=== PATIENT | female | born 1995 | race Caucasian/White ===

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

== ENCOUNTER 2017-06-07 10:17 | Outpatient (CLI) | payer OTHER ==
[2017-06-07 11:17] LABS: Amorphous Sediment,Urine Few /hpf; Appearance,Urine Clear (Clear); Bacteria,Urine Occasional /hpf; Bilirubin,Urine Negative (Negative); Glucose,Urine (UA) Trace (Negative); Ketones,Urine Negative (Negative); Leukocyte Esterase,Urine Large (Negative); Mucus,Urine Rare /hpf; Nitrite,Urine Negative (Negative); PH, Urine 7.5 (5.0-8.0); Particle Count 8488; Protein,Urine Trace (Negative); RBC,Urine 3 /hpf (0-5); Specific Gravity,Urine 1.006 (1.001-1.035); Squamous Epithelial Cell,Urine 1 /hpf (0-4); UA Billing (MACRO vs. MICRO) MICRO; Urobilinogen,Urine <2.0 mg/dL (<2.0); WBC,Urine 43 /hpf (0-5)
[2017-06-07 12:24] VITALS: BP 133/76; PULSE 85; RESP 14; TEMP 98.1
--- NOTE | 2017-08-14 09:29 | P.MSEPDOC ---
Presenting Problems - Arrival Data Date of Arrival on Unit: 06/07/17 Time of Arrival on Unit: 10:15 Mode of Transport: Ambulatory - Complaint OB-Reason for Admission/Chief Complaint: Pain Comment: vaginal pressure Medical History - Information : 2 Para: 1 Term: 1 : 0 Abortions: Spontaneous or Elective: 0 Number of Living Children: 1 - Gestational Age Gestational Age by JUSTA (wks/days): 32 Weeks and 2 Days - History Complications: No Care Review of Systems - Review of Systems Constitutional: No problems Breast: No problems ENT: No problems Cardiovascular: No problems Respiratory: No problems Gastrointestinal: No problems Genitourinary: No problems Musculoskeletal: No problems Neurological: No problems Skin: No problems Vital Signs - Temperature Temperature: 98.1 F Temperature Source: Oral - Pulse Right Brachial Pulse Rate: 85 Pulse Assessment Method: Automatic Cuff - Respirations Respiratory Rate: 14 Oxygen Delivery Method: Room Air - Blood Pressure Right Arm Blood Pressure: 133/76 Blood Pressure Mean: 95 Blood Pressure Source: Automatic Cuff Medical Screen Scoring (Pre) - Cervical Exam Dilation: 1-3 cm = 1 Membranes: Intact - Uterine Contractions Frequency: N/A Duration: N/A Intensity: N/A - Maternal Vital Signs Maternal Temperature: N/A Maternal Blood Pressure: N/A Signs of Preeclampsia: N/A Maternal Respirations: N/A - Maternal Trauma Maternal Trauma: N/A - Assessment Baseline FHR: 150 Heart Rate - NICHD Category: Category I (Normal) = 0 NST: Reactive Position: N/A - Total Score Total Score (Pre): 1 - Level of Risk Level of Risk: Low (0-5) Physician Notification (Pre) - Physician Notified Physician Notified Date: 06/07/17 Physician Notified Time: 11:13 Physician/Practitioner Notifed:: alta Spoke With: alta New Order Received: Yes - Notification Comment Comment: send ffn, ua, call with results Medical Screen Scoring (Post) - Cervical Exam Dilation: 1-3 cm = 1 - Uterine Contractions Frequency: N/A Duration: N/A - Maternal Vital Signs Maternal Temperature: N/A Maternal Blood Pressure: N/A Signs of Preeclampsia: N/A Maternal Respirations: N/A - Maternal Trauma Maternal Trauma: N/A - Assessment Heart Rate: 150 Heart Rate - NICHD Category: Category I (Normal) = 0 NST: Reactive Position: N/A Station: N/A - Total Score Total Score (Post): 1 - Post Treatment Level of Risk Post Treatment Level of Risk: Low (0-5) Physician Notification (Post) - Physician Notified Physician Notified Date: 06/07/17 Physician Notified Time: 11:52 Physician/Practitioner Notified:: alta Spoke With: alta New Order Received: Yes - Notification Comment Comment: script called into pt pharmacy of choice, culture from ua being drawn, pt to keep 2 oclock appointment tomorrow at [facility] Disposition - Disposition OB Disposition: Physician follow up in office, Discharge to home Discharge Date: 06/07/17 Discharge Time: 12:05 I agree with the RN Medical Screening Exam: Yes Risk & Benefit of care provided described in d/c instruction: Yes Diagnosis: FALSE LABOR BEFORE 37 COMPLETED WEEKS OF GEST, THIRD TRI
== END 2017-06-07 12:05 | disposition home or self-care (01) ==
LOC: FBPOP 10:17
PROVIDERS: ATTEND Obstetrics & Gynecology Obstetrics
DX: O47.03 False labor before 37 completed weeks of gestation, third trimester (principal); Z3A.32 32 weeks gestation of pregnancy
CPT/HCPCS: 59025; 81001; 82731; 87077; 87086; 87186; 99213

== ENCOUNTER 2017-07-24 05:41 | Inpatient (IN) | payer OTHER ==
[2017-07-24] MEDS ORDERED: OXYTOCIN 10 UNIT/ML 1 ML VIAL IM PRN (05:55)
[2017-07-24] MEDS ORDERED: METHYLERGONOVINE 0.2 MG/ML 1 ML AMP IM PRN (05:55)
[2017-07-24] MEDS ORDERED: CARBOPROST TROMETHAMINE 250 MCG/ML 1 ML AMP IM PRN (05:55)
[2017-07-24] MEDS ORDERED: LIDOCAINE 1% (PF) 10 MG/ML (30 ML SDV) SQ PRN (05:55)
[2017-07-24] MEDS ORDERED: TERBUTALINE 1 MG/ML VIAL SQ PRN (05:55)
[2017-07-24] MEDS ORDERED: PENICILLIN G POTASSIUM 5,000,000 UNIT in DEXTROSE 5% IN WATER 100 ML IV STA ×2 (05:55)
[2017-07-24 06:04] VITALS: BMI 33.2
[2017-07-24 06:12] LABS: Basophils % (A) 0 %; CH 25.9; CHCM 32.8; Eosinophils # (A) 0.2 k/uL (0-0.7); Eosinophils % (A) 2 %; HCT 36.1 % (34.0-46.0); HDW 3.29; HGB 11.9 gm/dL (11.4-16.0); Hypochromasia Slight; Luc # (Auto) 0.14; Luc % (Auto) 1; Lymphocytes # (A) 2.6 k/uL (1.0-4.8); Lymphocytes % (A) 26 %; MCH 26.1 pg (25.0-35.0); MCV 79.3 fL (80.0-100.0); Mean Platelet Volume 7.4; Monocytes # (A) 0.4 k/uL (0-1.0); Monocytes % (A) 4 %; Neutrophils # (A) 6.6 k/uL (1.3-7.7); Neutrophils % (A) 67 %; RBC 4.55 m/uL (3.80-5.40); RDW 15.6 % (11.5-15.5); WBC 9.9 k/uL (4.0-11.0); WBC (Perox) 10.58
[2017-07-24] MEDS: LACTATED RINGERS 1,000 ML IV SCH ×2 (06:35→11:40)
[2017-07-24] MEDS: OXYTOCIN 20 UNITS/1000 ML NS 1,000 ML IV SCH (06:36)
--- NOTE | 2017-07-24 10:29 | P.HPOB ---
History of Present Illness H&P Date: 07/24/17 Chief Complaint: Intrauterine at 39-0/7 weeks. Betty is a very pleasant 22-year-old 2 para 1001 that presents for elective induction of labor. She is without complaints this morning. She notes good movement and only occasional contractions and denies loss of fluid. On blood work her blood type is O+ she is rubella nonimmune, hepatitis B surface antigen negative, GBS positive, HIV negative, RPR nonreactive. Review of Systems Constitutional: Reports fatigue Past Medical History Past Medical History: No Reported History History of Any Multi-Drug Resistant Organisms: None Reported Past Surgical History: No Surgical Hx Reported Additional Past Surgical History / Comment(s): myrinotomy at age 12 Past Anesthesia/Blood Transfusion Reactions: No Reported Reaction Past Psychological History: Anxiety, Depression Smoking Status: Never smoker Past Alcohol Use History: None Reported Past Drug Use History: None Reported - Past Family History Mother Family Medical History: Hypertension Medications and Allergies Home Medications Medication Instructions Recorded Confirmed Type Pedi Multivit No.25/Folic Acid 1 tab PO DAILY 06/07/17 07/24/17 History [Flintstones Multivit Chew Tab] Allergies Allergy/AdvReac Type Severity Reaction Status Date / Time No Known Allergies Allergy Verified 07/24/17 05:54 Exam Osteopathic Statement: *. No significant issues noted on an osteopathic structural exam other than those noted in the History and Physical/Consult. - Vital Signs Vital signs: Vital Signs Temp Pulse Resp BP 07/24/17 05:58 97.7 F 88 16 136/93 Intake and Output 07/23/17 07/24/17 07/24/17 22:59 06:59 14:59 Other: # Voids 1 Weight 79.832 kg - OBG Physical Exam Abdomen: Gravid and appropriate for gestational age Abdomen: bowel sounds normal Vulva: both: normal Vagina: normal moisture Cervix: 4 cm/80%/-2 Uterus: enlarged Anus/Rectum: normal perianal skin Results Result Diagrams: 07/24/17 05:57 Abnormal Lab Results - Last 24 Hours (Table) 07/24/17 Range/Units 05:57 MCV 79.3 L (80.0-100.0) fL RDW 15.6 H (11.5-15.5) % Assessment and Plan (1) Term Narrative/Plan: Will admit to labor and delivery for elective induction of labor. Pitocin augmentation per protocol, amniotomy when appropriate. Anticipate spontaneous vaginal delivery later this afternoon. We will repeat MMR after delivery given she is rubella nonimmune Status: Acute
[2017-07-24] MEDS: PENICILLIN G POTASSIUM 2,500,000 UNIT in DEXTROSE 5% IN WATER 100 ML IV SCH ×2 (10:36)
[2017-07-24] MEDS ORDERED: SODIUM CHLORIDE 0.9% 100 ML BAG ONE (11:08)
[2017-07-24] MEDS ORDERED: fentaNYL (PF) 50 MCG/ML 5 ML AMP ONE (11:08)
[2017-07-24] MEDS ORDERED: BUPIVACAINE (PF) 0.25% 30 ML VIAL ONE (11:08)
[2017-07-24] MEDS ORDERED: BUPIVACAINE (PF) 0.25% 25 ML, fentaNYL (PF) 200 MCG in SODIUM CHLORIDE 0.9% 71 ML EPIDURAL ONE (11:20)
--- NOTE | 2017-07-24 12:26 | P.PROBDLV ---
Vaginal Delivery Note - . Vaginal Delivery Note: Alpa is a very pleasant 22-year-old at 39-0/7 weeks that presents for elective induction of labor. Pitocin was started this morning with a ventral arm artificial rupture of membranes. She progressed through labor getting an epidural and was complete soon after. heart tones were noted to be in the 90s good variability remained with poor maternal effort with pushing therefore a vacuum assist vaginal delivery was necessary. 1 pull with push only and baby delivered without difficulty. Preoperative diagnosis: IUP at 39-0/7 weeks, elective induction of labor, group beta strep positive, rubella nonimmune. Postoperative diagnosis: same Procedure vacuum-assisted vaginal delivery, amniotomy, Pitocin induction of labor Surgeon Omayra De Leon D.O. Anesthesia epidural Estimated blood loss 400 mL Findings: female in occiput posterior presentation, time of 1141, Apgars of 9 and 9 at one and 5 minutes respectively. Placenta delivered spontaneously with three-vessel cord. Complications none Specimen placenta Mother and tolerated delivery well and are in stable condition
[2017-07-24] MEDS ORDERED: MEASLES-MUMPS-RUBELLA VACC/PF 12,500 UNIT/0.5 ML VIAL SQ ONE (12:35)
[2017-07-24] MEDS ORDERED: HYDROCORTISONE 2.5% RECTAL CREAM 30 GM TUBE RECTAL PRN (12:35)
[2017-07-24] MEDS ORDERED: ZOLPIDEM 5 MG TAB PO PRN (12:35)
[2017-07-24] MEDS ORDERED: LANOLIN CREAM 5 GM TUBE TOPICAL PRN (12:35)
[2017-07-24] MEDS ORDERED: diphenhydrAMINE 50 MG/ML 1 ML VIAL IVP PRN ×2 (12:35)
[2017-07-24] MEDS ORDERED: diphenhydrAMINE 50 MG CAP PO PRN (12:35)
[2017-07-24] MEDS ORDERED: diphenhydrAMINE 25 MG CAP PO PRN (12:35)
[2017-07-24] MEDS ORDERED: BENZOCAINE/MENTHOL SPRAY 1 GM/SPRAY AEROSOL TOPICAL PRN (12:35)
[2017-07-24] MEDS ORDERED: ACETAMINOPHEN TAB 325 MG TAB PO PRN (12:35)
[2017-07-24] MEDS ORDERED: SIMETHICONE 80 MG CHEWABLE PO PRN (12:35)
[2017-07-24] MEDS ORDERED: Acetaminophen-Codeine 300-30mg TAB PO PRN ×2 (12:35)
[2017-07-24] MEDS ORDERED: WITCH HAZEL 1 EACH MED..PAD TOPICAL PRN (12:35)
[2017-07-24 16:33] VITALS: RESP 18
[2017-07-24] MEDS: SENNOSIDES-DOCUSATE SODIUM 1 EACH TAB PO SCH (19:55)
[2017-07-24] MEDS: IBUPROFEN 600 MG TAB PO PRN (19:55)
[2017-07-25 01:11] VITALS: TEMP 98.1
[2017-07-25 08:03] LABS: Anisocytosis Slight; Basophils % (A) 0 %; CH 26.5; CHCM 32.9; Eosinophils # (A) 0.1 k/uL (0-0.7); Eosinophils % (A) 1 %; HCT 25.2 % (34.0-46.0); Luc % (Auto) 1; Lymphocytes % (A) 22 %; MCH 26.4 pg (25.0-35.0); MCHC 32.6 g/dL (31.0-37.0); MCV 80.8 fL (80.0-100.0); Mean Platelet Volume 7.9; Monocytes # (A) 0.4 k/uL (0-1.0); Monocytes % (A) 4 %; Neutrophils # (A) 6.5 k/uL (1.3-7.7); Neutrophils % (A) 71 %; RBC 3.12 m/uL (3.80-5.40); RDW 16.2 % (11.5-15.5); WBC 9.1 k/uL (4.0-11.0); WBC (Perox) 9.23
[2017-07-25 08:05] LABS: HGB 8.2 gm/dL (11.4-16.0)
[2017-07-25] MEDS: SENNOSIDES-DOCUSATE SODIUM 1 EACH TAB PO SCH (08:24)
[2017-07-25] MEDS: IBUPROFEN 600 MG TAB PO PRN (08:24)
[2017-07-25] MEDS: PENICILLIN G POTASSIUM 2,500,000 UNIT in DEXTROSE 5% IN WATER 100 ML IV SCH ×2 (08:27)
[2017-07-25] MEDS: LACTATED RINGERS 1,000 ML IV SCH (08:28)
[2017-07-25] MEDS: OXYTOCIN 20 UNITS/1000 ML NS 1,000 ML IV SCH (08:28)
--- NOTE | 2017-07-25 08:37 | P.PNOBGVD ---
Subjective - Subjective Principal diagnosis: Status post vacuum assisted vaginal delivery Interval history: Betty is day #1 status post vacuum assisted vaginal delivery. She is doing well this morning she is ambulating and voiding without difficulty. She is tolerating a regular diet without nausea or vomiting. She states her pain is controlled with by mouth meds. Her lochia is moderate, she is bottlefeeding. Patient reports: Reports appetite normal, Reports voiding normally, Reports pain well controlled, Reports ambulating normally : doing well, bottle feeding Objective - Latest Vital Signs Latest vital signs: Vital Signs Temp Pulse Pulse Resp BP Pulse Ox 07/25/17 00:00 98.1 F 92 18 123/66 97 07/24/17 20:00 97.8 F 110 H 18 126/89 99 07/24/17 16:00 98.3 F 112 H 18 126/74 07/24/17 14:06 89 16 127/80 07/24/17 13:36 76 16 130/71 100 07/24/17 13:06 79 16 129/79 07/24/17 12:51 76 16 120/76 07/24/17 12:36 83 16 141/72 07/24/17 12:21 71 16 135/71 07/24/17 12:06 67 16 130/68 100 07/24/17 11:56 87 20 142/73 Intake and Output 07/24/17 07/25/17 07/25/17 22:59 06:59 14:59 Output Total 100 Balance -100 Output: Urine 100 Other: # Voids 1 1 - Exam Lungs: bilateral: normal Extremities: Present: normal Abdomen: Present: normal appearance Uterus: Present: firm Comments: Below the umbilicus - Labs Labs: Abnormal Lab Results - Last 24 Hours (Table) 07/25/17 Range/Units 07:02 RBC 3.12 L (3.80-5.40) m/uL Hgb 8.2 L D (11.4-16.0) gm/dL Hct 25.2 L (34.0-46.0) % RDW 16.2 H (11.5-15.5) % Assessment and Plan (1) Term Current Visit: Yes Status: Acute Code(s): Z34.80 - ENCOUNTER FOR SUPRVSN OF NORMAL , UNSP TRIMESTER SNOMED Code(s): 74818806 (2) Acute blood loss anemia Current Visit: Yes Status: Acute Code(s): D62 - ACUTE POSTHEMORRHAGIC ANEMIA SNOMED Code(s): 340032082 (3) PPH ( hemorrhage) Current Visit: Yes Status: Acute Code(s): O72.1 - OTHER IMMEDIATE HEMORRHAGE SNOMED Code(s): 09960749 (4) Group B Streptococcus carrier, antepartum Current Visit: No Status: Acute Code(s): O99.820 - STREPTOCOCCUS B CARRIER STATE COMPLICATING SNOMED Code(s): 7549772604464 (5) Normal vaginal delivery Narrative/Plan: Alpa is a very pleasant 22-year-old 2 para 2 that per presented to labor and delivery yesterday for elective induction of labor. She is doing well on day #1. Acute blood loss anemia is noted secondary to hemorrhage. She denies nausea vomiting dizziness or lightheadedness with ambulation. She would like to be discharged home later today if stable. Current Visit: No Status: Acute Code(s): MUM2173 - SNOMED Code(s): 617935596
--- NOTE | 2017-07-25 08:41 | P.DS ---
Providers Date of admission: 07/24/17 05:41 Expected date of discharge: 07/25/17 Attending physician: Omayra De Leon Primary care physician: Stated None - Discharge Diagnosis(es) (1) Term This is a 22-year-old 2 para 2001 that presented to labor and delivery on 07/24/2017 for elective induction of labor. She progressed through labor without difficulty after Pitocin augmentation and amniotomy. She was noted to have a low baseline therefore vacuum assist vaginal delivery was necessary. She is without complaints this morning. She did have hemorrhage status post Methergine and extra Pitocin after delivery. Today she denies complaints is ambulating without lightheadedness, dizziness. She is ambulating and voiding without difficulty. She states her pain is controlled with by mouth medications. She is bottle feeding. Current Visit: Yes Status: Acute (2) Acute blood loss anemia Current Visit: Yes Status: Acute (3) PPH ( hemorrhage) Current Visit: Yes Status: Acute (4) Group B Streptococcus carrier, antepartum Current Visit: No Status: Acute (5) Normal vaginal delivery Current Visit: No Status: Acute Plan - Discharge Summary New Discharge Prescriptions: No Action Pedi Multivit No.25/Folic Acid [Flintstones Multivit Chew Tab] 1 tab PO DAILY Discharge Medication List Pedi Multivit No.25/Folic Acid [Flintstones Multivit Chew Tab] 1 tab PO DAILY [History] Follow up Appointment(s)/Referral(s): Omayra De Leon DO [Doctor of Osteopathic Medicine] - 2 Weeks Patient Instructions/Handouts: Vaginal Delivery (DC) Discharge Disposition: HOME SELF-CARE
[2017-07-25 08:55] VITALS: BP 143/76; PULSE 103
[2017-07-25] MEDS ORDERED: [UNRECOGNIZED DRUG - REMARK] PO SCH (09:00)
[2017-07-25] MEDS ORDERED: MULTIVITAMINS, PEDIATRIC 1 EACH CHEWABLE PO SCH (12:00)
== END 2017-07-25 11:45 | disposition home or self-care (01) | DRG 774 ==
LOC: 4FBP 05:41
PROVIDERS: ADMIT Obstetrics & Gynecology Obstetrics; ATTEND Obstetrics & Gynecology Obstetrics
PROC: 10D07Z6 Extraction of Products of Conception, Vacuum, Via Natural or Artificial Opening (ICD-10-PCS; principal; 2017-07-24)
PROC: 3E0R3CZ (ICD-10-PCS; principal; 2017-07-24)
PROC: 00HU33Z Insertion of Infusion Device into Spinal Canal, Percutaneous Approach (ICD-10-PCS; principal; 2017-07-24)
PROC: 10907ZC Drainage of Amniotic Fluid, Therapeutic from Products of Conception, Via Natural or Artificial Opening (ICD-10-PCS; principal; 2017-07-24)
PROC: 3E033VJ Introduction of Other Hormone into Peripheral Vein, Percutaneous Approach (ICD-10-PCS; principal; 2017-07-24)
DX: O99.824 Streptococcus B carrier state complicating childbirth (principal); O72.1 Other immediate postpartum hemorrhage; D62 Acute posthemorrhagic anemia; O76 Abnormality in fetal heart rate and rhythm complicating labor and delivery; Z37.0 Single live birth; O99.02 Anemia complicating childbirth; Z3A.39 39 weeks gestation of pregnancy
CPT/HCPCS: 85025; 88307; 90707

== ENCOUNTER 2018-05-28 10:48 | Inpatient (IN) | payer OTHER ==
[2018-05-28] MEDS ORDERED: PENICILLIN G POTASSIUM 5,000,000 UNIT in DEXTROSE 5% IN WATER 100 ML IVPB STA ×2 (11:06)
[2018-05-28] MEDS ORDERED: TERBUTALINE 1 MG/ML VIAL SQ PRN (11:06)
[2018-05-28] MEDS ORDERED: METHYLERGONOVINE 0.2 MG/ML 1 ML AMP IM PRN (11:06)
[2018-05-28] MEDS ORDERED: LIDOCAINE 1% (PF) 10 MG/ML (30 ML SDV) SQ PRN (11:06)
[2018-05-28] MEDS ORDERED: OXYTOCIN 10 UNIT/ML 1 ML VIAL IM PRN (11:06)
[2018-05-28] MEDS ORDERED: CARBOPROST TROMETHAMINE 250 MCG/ML 1 ML AMP IM PRN (11:06)
[2018-05-28] MEDS ORDERED: OXYTOCIN 20 UNITS/1000 ML NS 1,000 ML IV SCH ×2 (11:15→16:15)
[2018-05-28 11:24] LABS: Appearance,Urine Clear (Clear); Bacteria,Urine Rare /hpf; Bilirubin,Urine Negative (Negative); Blood,Urine Negative (Negative); Color,Urine Light Yellow; Glucose,Urine (UA) Negative (Negative); Ketones,Urine Negative (Negative); Leukocyte Esterase,Urine Small (Negative); Mucus,Urine Rare /hpf; Nitrite,Urine Negative (Negative); PH, Urine 5.5 (5.0-8.0); Protein,Urine Negative (Negative); Squamous Epithelial Cell,Urine 1 /hpf (0-4); Urobilinogen,Urine <2.0 mg/dL (<2.0); WBC,Urine 2 /hpf (0-5)
[2018-05-28] MEDS: LACTATED RINGERS 1,000 ML IV SCH ×2 (11:32→13:39)
[2018-05-28 11:54] LABS: Anisocytosis Slight; Basophils % (A) 0 %; Eosinophils # (A) 0.1 k/uL (0-0.7); Eosinophils % (A) 1 %; HCT 30.5 % (34.0-46.0); HGB 9.5 gm/dL (11.4-16.0); Hypochromasia Moderate; Lymphocytes % (A) 23 %; MCH 20.5 pg (25.0-35.0); MCV 66.1 fL (80.0-100.0); Mean Platelet Volume 7.8; Microcytosis Marked; Monocytes # (A) 0.7 k/uL (0-1.0); Monocytes % (A) 8 %; Neutrophils # (A) 5.7 k/uL (1.3-7.7); Neutrophils % (A) 66 %; Platelet Count 256 k/uL (150-450); Poikilocytosis Slight; RBC 4.62 m/uL (3.80-5.40); RDW 17.7 % (11.5-15.5); WBC 8.7 k/uL (4.0-11.0)
[2018-05-28 12:01] LABS: ALT 18 U/L (9-52); AST 15 U/L (14-36); Blood Urea Nitrogen 13 mg/dL (7-17); LDH 344 U/L (313-618); Uric Acid 5.1 mg/dL (3.7-7.4)
[2018-05-28 12:03] VITALS: BMI 30.2
--- NOTE | 2018-05-28 12:47 | US ---
EXAMINATION TYPE: US OB >= 14 wk fetus DATE OF EXAM: 05/28/2018 COMPARISON: None CLINICAL HISTORY: dates and baby size Patient is in labor, no care, unknown dates. TECHNIQUE: Transabdominal (TA) GESTATIONAL AGE / DATING Physician Established: Not yet established Dates by LMP: LMP unknown Dates by First Scan: No previous this is first scan Dates by Current Scan: (36 weeks/6 days) EDC: 06/19/2018 Beta HCG (if available): Not available at this time SURVEY IUP: Single PLACENTA: Anterior PREVIA: No Previa BARRIE: 7.8 cm Oligohydramnios CERVICAL LENGTH (transabdominal: norm > 3.0cm): 3.1 cm BIOMETRY PRESENTATION: Vertex LIE: Longitudinal BPD: 8.99 cm 36 weeks / 3 days HC: 33.36 cm 38 weeks / 1 days AC: 34.68 cm 38 weeks / 4 days FL: 7.06 cm 36 weeks / 1 days ESTIMATED WEIGHT IN GRAMS: 3288 grams ESTIMATED WEIGHT IN LBS/OZ: 7 lbs. 4 oz. HC/AC: 0.96 Normal FL/AC: 20.35 Normal HEART RATE: 147 bpm RHYTHM: Normal Viable IUP with an JUSTA of 06/19/2018 by this exam. Oligohydramnios IMPRESSION: 1. Single intrauterine gestation in cephalic presentation estimated at 36 weeks 6 days gestation. 2. Oligohydramnios. 3. Cardiac activity measures 147 bpm. 4. Estimated weight is 3288 g based on current measurements.
[2018-05-28 13:33] LABS: Amphetamine Screen,Urine Not Detected (NotDetected); Barbiturate Screen,Urine Not Detected (NotDetected); Benzodiazepines Screen,Urine Not Detected (NotDetected); Cocaine Screen,Urine Not Detected (NotDetected); Methadone Screen, Urine Not Detected (NotDetected); Opiate Screen,Urine Not Detected (NotDetected); Oxycodone Screen, Urine Not Detected (NotDetected); Phencyclidine Screen,Urine Not Detected (NotDetected); Tricyclic Antidepressant,Urine Not Detected (NotDetected); Urn Cannabinoid Scrn Not Detected (NotDetected)
[2018-05-28] MEDS ORDERED: ROPIVACAINE 100 MG, fentaNYL (PF) 200 MCG in SODIUM CHLORIDE 0.9% 76 ML EPIDURAL ONE (13:40)
--- NOTE | 2018-05-28 15:33 | P.HPOB ---
History of Present Illness H&P Date: 05/28/18 Chief Complaint: Term , labor, no care The patient is a 22-year-old 3 para 2001 who has been seen for previous pregnancies through our office. She last delivered in 07/25/2017 and did not return to the office for a visit. She reports her last menstrual period is 08/28/2017 making her 40 and one sevenths weeks by last menstrual period. She presents to the hospital and what appears to be early active labor with all signs reassuring. By her report, her has been uncomplicated though she is intending to pursue adoption of this child. Ultrasound done on labor and delivery demonstrates an estimated gestational age of 36-6/7 weeks making her working due date 06/19/2018. She is Rh+ from previous documentation. She also has a history of group B strep colonization and is therefore being treated and advance of delivery. She did present with some initial elevated blood pressures in the range of 150/90 which have normalized as pain has come under control. Obstetrical history: 3 para 2001 with 2 term vaginal deliveries without Occasions. labs are drawn but not available at this time though she is Rh+. Group B strep status is unavailable. Review of previous records for prior pregnancies demonstrates no significant concerns aside from -induced hypertension. Gynecologic history: Reportedly unremarkable with no history of any infections to include STDs. Review of Systems Review of systems is confined to history of present illness. Past Medical History Past Medical History: No Reported History History of Any Multi-Drug Resistant Organisms: None Reported Past Surgical History: No Surgical Hx Reported Additional Past Surgical History / Comment(s): myrinotomy at age 12 Past Anesthesia/Blood Transfusion Reactions: No Reported Reaction Smoking Status: Never smoker - Past Family History Mother Family Medical History: Hypertension Medications and Allergies Home Medications Medication Instructions Recorded Confirmed Type Pedi Multivit No.25/Folic Acid 1 tab PO DAILY 06/07/17 07/24/17 History [Flintstones Multivit Chew Tab] Allergies Allergy/AdvReac Type Severity Reaction Status Date / Time No Known Allergies Allergy Verified 07/24/17 05:54 Exam Vital Signs Temp Pulse Resp BP Pulse Ox 05/28/18 10:50 97.6 F 93 16 145/96 99 Intake and Output 05/28/18 05/28/18 05/28/18 06:59 14:59 22:59 Other: Weight 72.575 kg In general, this is a well-developed, well-nourished white female in no acute distress. Her heart has a regular rhythm and rate without murmur. Her lungs are clear to auscultation bilaterally in all reed. Her abdomen is gravid, nondistended, has normal active bowel sounds, is soft, nontender, and without any palpable masses aside from uterine fundus. Her extremities are without any cyanosis, clubbing, or significant edema and are nontender to palpation bilaterally. Digital cervical examination demonstrates her cervix to be completely dilated with the vertex in presentation at approximately -1 station. Artificial rupture of membranes is carried out demonstrating clear fluid. Results Result Diagrams: 05/28/18 11:30 05/28/18 11:30 Abnormal Lab Results - Last 24 Hours (Table) 05/28/18 05/28/18 Range/Units 11:00 11:30 Hgb 9.5 L (11.4-16.0) gm/dL Hct 30.5 L (34.0-46.0) % MCV 66.1 L (80.0-100.0) fL MCH 20.5 L (25.0-35.0) pg RDW 17.7 H (11.5-15.5) % Ur Leukocyte Esterase Small H (Negative) Urine Bacteria Rare H (None) /hpf Urine Mucus Rare H (None) /hpf Assessment and Plan (1) No care in current Current Visit: Yes Status: Acute Code(s): O09.30 - SUPRVSN OF PREG W INSUFFICIENT ANTENAT CARE, UNSP TRIMESTER SNOMED Code(s): 6382466524157 (2) Active labor at term Current Visit: Yes Status: Acute Code(s): VCK3240 - SNOMED Code(s): 86853252 Plan: The patient is admitted for active management of labor. An epidural catheter has been placed for analgesia and she has had 4 hours of antibiotics as prophylaxis for possible group B strep colonization. I would anticipate normal vaginal delivery in the near future. Close maternal and surveillance will continue to be practiced.
[2018-05-28] MEDS ORDERED: HYDROCORTISONE 2.5% RECTAL CREAM 30 GM TUBE RECTAL PRN (16:03)
[2018-05-28] MEDS ORDERED: ACETAMINOPHEN TAB 325 MG TAB PO PRN (16:03)
[2018-05-28] MEDS ORDERED: diphenhydrAMINE 50 MG/ML 1 ML VIAL IVP PRN ×2 (16:03)
[2018-05-28] MEDS ORDERED: BENZOCAINE/MENTHOL SPRAY 1 GM/SPRAY AEROSOL TOPICAL PRN (16:03)
[2018-05-28] MEDS ORDERED: diphenhydrAMINE 25 MG CAP PO PRN (16:03)
[2018-05-28] MEDS ORDERED: IBUPROFEN 600 MG TAB PO PRN (16:03)
[2018-05-28] MEDS ORDERED: SIMETHICONE 80 MG CHEWABLE PO PRN (16:03)
[2018-05-28] MEDS ORDERED: HYDROcodone/APAP 5-325MG 1 EACH TAB PO PRN (16:03)
[2018-05-28] MEDS ORDERED: WITCH HAZEL 1 EACH MED..PAD TOPICAL PRN (16:03)
[2018-05-28] MEDS ORDERED: diphenhydrAMINE 50 MG CAP PO PRN (16:03)
[2018-05-28] MEDS ORDERED: ZOLPIDEM 5 MG TAB PO PRN (16:03)
--- NOTE | 2018-05-28 16:07 | P.PROBDLV ---
Vaginal Delivery Note - . Vaginal Delivery Note: The patient is a 22-year-old 3 para 2001 admitted at 40 and one sevenths weeks by last menstrual period, 36-6/7 weeks by ultrasound done today, in early active labor with all signs reassuring. By report, her has been uncomplicated but she has had no care during this . Her intention is to proceed with adoption of the . On labor and delivery, she initially had elevated blood pressures which normalized during the labor process and laboratory workup for preeclampsia was negative. She had an epidural catheter placed for analgesia and then progressed fairly quickly through the active phase of labor to complete at which time she underwent artificial rupture of membranes demonstrating clear fluid. She had received more than 4 hours worth of antibiotic prophylaxis for unknown group B strep status with a history of group B strep positive and a previous . She pushed over the course of 3 contractions to a normal spontaneous vaginal delivery of a viable 7 lbs. 0 oz. baby boy with Apgars of 9 at 1 minute and 9 at 5 minutes delivered in the left occiput anterior position. The placenta was delivered spontaneously, intact, and grossly normal although there was some adherent clot adjacent to the body of the placenta leading to speculation of possible marginal abruption. There was a grossly normal three-vessel cord inserted approximate 5 cm from the margin of the placental disc. There were no lacerations of the perineum, vagina, or cervix. All sponge, instrument, and needle counts were correct. Both mother and infant are resting comfortably in recovery. enrollment services dean has been contacted and will continue to be involved as regards the destination and discharge of the .
[2018-05-28 21:18] LABS: HIV AB P24 Non-Reactive (Non-Reactive); HIV P24 AG Non-Reactive (Non-Reactive)
[2018-05-28] MEDS: SENNOSIDES-DOCUSATE SODIUM 1 EACH TAB PO SCH (21:59)
[2018-05-29] MEDS: PENICILLIN G POTASSIUM 2,500,000 UNIT in DEXTROSE 5% IN WATER 100 ML IVPB SCH ×2 (00:26)
--- NOTE | 2018-05-29 08:39 | P.DS ---
Providers Date of admission: 05/28/18 11:13 Expected date of discharge: 05/29/18 Attending physician: Jesus Hernandez - Discharge Diagnosis(es) (1) No care in current Current Visit: Yes Status: Acute (2) Active labor at term Current Visit: Yes Status: Acute (3) Normal vaginal delivery Current Visit: Yes Status: Acute Hospital Course: The patient is a 22-year-old 3 para 2000 admitted at 40 and one sevenths weeks by dates, 36-6/7 weeks by ultrasound done in triage. She is admitted in early active labor with all signs reassuring though she did have some initial elevated blood pressures which resolved during labor. Her was uncomplicated however she had no care during the . Her intention is to release the baby for adoption and a and adoption agency has been contacted. On labor and delivery, she had an epidural catheter placed for analgesia and progressed to complete at which time she underwent artificial rupture of membranes for clear fluid. She pushed fairly quickly to a normal spontaneous vaginal delivery of viable 7 lbs. 0 oz. baby boy with Apgars of 9 at 1 minute and 9 at 5 minutes. Her course was unremarkable with vital signs remaining stable and her temperature was afebrile throughout. She was deemed stable for discharge by day #1 and was discharged home to follow-up in the office in 6 weeks' time routinely. Discharge instructions included calling for any significantly increased bleeding or foul-smelling lochia, significantly increased fever abdominal pain, perineal complaints, breast complaints, or anything else that concerned her. I did additionally briefly discuss the concerns for depression, particularly in the face of giving up the for adoption. She is additionally instructed to have nothing in the vagina for at least 6 weeks time to include intercourse. She understood her instructions and agrees to follow up as noted above. Discharge medications included [id number] analgesic pain medications. Maternal blood type is O+ and rubella status is immune. Procedures: #1. Epidural analgesia #2. Artificial rupture of membranes #3. Normal spontaneous vaginal delivery Patient Condition at Discharge: Good Plan - Discharge Summary Discharge Rx Participant: Yes New Discharge Prescriptions: No Action Pedi Multivit No.25/Folic Acid [Flintstones Multivit Chew Tab] 1 tab PO DAILY Discharge Medication List Pedi Multivit No.25/Folic Acid [Flintstones Multivit Chew Tab] 1 tab PO DAILY [History] Follow up Appointment(s)/Referral(s): Jesus Hernandez MD [STAFF PHYSICIAN] - 6 Weeks Discharge Disposition: HOME SELF-CARE
[2018-05-29] MEDS: SENNOSIDES-DOCUSATE SODIUM 1 EACH TAB PO SCH (09:40)
[2018-05-29 16:43] VITALS: BP 137/86; PULSE 90; RESP 20; TEMP 98.4
== END 2018-05-29 18:05 | disposition home or self-care (01) | DRG 775 ==
LOC: FBPOP 10:48 → 4FBP 11:13
PROVIDERS: ADMIT Obstetrics & Gynecology; ATTEND Obstetrics & Gynecology
PROC: 10E0XZZ Delivery of Products of Conception, External Approach (ICD-10-PCS; principal; 2018-05-28)
PROC: 00HU33Z Insertion of Infusion Device into Spinal Canal, Percutaneous Approach (ICD-10-PCS; 2018-05-28)
PROC: 3E0R3BZ Introduction of Anesthetic Agent into Spinal Canal, Percutaneous Approach (ICD-10-PCS; 2018-05-28)
DX: O99.824 Streptococcus B carrier state complicating childbirth (principal); Z37.0 Single live birth; Z3A.36 36 weeks gestation of pregnancy; Z82.49 Family history of ischemic heart disease and other diseases of the circulatory system
CPT/HCPCS: 59025; 76805; 80306; 81001; 82565; 82947; 83615; 84450; 84460; 84520; 84550; 85025; 86762; 86780; 86850; 86900; 86901; 87340; 87390; 88307; 99213

== ENCOUNTER 2020-04-29 21:13 | Emergency (ER) | payer OTHER ==
[2020-04-29 21:23] VITALS: TEMP 99.5
[2020-04-29] MEDS ORDERED: KETOROLAC 30 MG/ML 1 ML VIAL IVP STA (22:03)
[2020-04-29] MEDS ORDERED: SODIUM CHLORIDE 0.9% 1,000 ML IV STA (22:03)
[2020-04-29 23:02] LABS: Basophils % (A) 0 %; Eosinophils # (A) 0.3 k/uL (0-0.7); Eosinophils % (A) 2 %; HCT 44.1 % (34.0-46.0); Lymphocytes # (A) 2.9 k/uL (1.0-4.8); Lymphocytes % (A) 28 %; MCH 26.1 pg (25.0-35.0); MCHC 31.7 g/dL (31.0-37.0); MCV 82.5 fL (80.0-100.0); Mean Platelet Volume 7.1; Monocytes # (A) 0.4 k/uL (0-1.0); Monocytes % (A) 4 %; Neutrophils # (A) 6.7 k/uL (1.3-7.7); Neutrophils % (A) 64 %; Platelet Count 278 k/uL (150-450); RBC 5.35 m/uL (3.80-5.40); RDW 13.3 % (11.5-15.5); WBC 10.5 k/uL (3.8-10.6)
[2020-04-29 23:04] LABS: Appearance,Urine Clear (Clear); Bilirubin,Urine Negative (Negative); Blood,Urine Negative (Negative); Color,Urine Light Yellow; Glucose,Urine (UA) Negative (Negative); Ketones,Urine Negative (Negative); Leukocyte Esterase,Urine Negative (Negative); Nitrite,Urine Negative (Negative); PH, Urine 6.5 (5.0-8.0); Protein,Urine Negative (Negative); Specific Gravity,Urine 1.016 (1.001-1.035); Urobilinogen,Urine <2.0 mg/dL (<2.0)
--- NOTE | 2020-04-29 23:13 | ED ---
Abdominal Pain HPI - General Chief Complaint: Abdominal Pain Stated Complaint: Abd/Back Pain Source: patient Mode of arrival: ambulatory Limitations: no limitations - History of Present Illness Initial Comments: The patient is a 24-year-old female who presents emergency room with reported abdominal pain 1 hour. She reports that it is in the right upper quadrant with radiation through to her back. Pain started one hour after eating. Patient reports a similar pain previously in the past. States over the past 3 week she's had 3 episodes total. She denies any fevers or chills. Admits to nausea without vomiting. No ripping or tearing sensation to her back. Denies chest pain or cough. No lower pelvic pain. Denies dysuria, hematuria or difficulty voiding. Denies diarrhea, constipation, melenic stools or hematochezia. No abnormal vaginal bleeding or discharge. Last menstrual cycle was 2 weeks ago. Denies concern for or sexually transmitted infections. She did not take any medications for her symptoms. There are no alleviating, Percepting or modifying factors - Related Data Home Medications Medication Instructions Recorded Confirmed No Known Home Medications 04/29/20 04/29/20 Allergies Allergy/AdvReac Type Severity Reaction Status Date / Time No Known Allergies Allergy Verified 04/29/20 22:16 Review of Systems ROS Statement: Those systems with pertinent positive or pertinent negative responses have been documented in the HPI. ROS Other: All systems not noted in ROS Statement are negative. Past Medical History Past Medical History: No Reported History History of Any Multi-Drug Resistant Organisms: None Reported Past Surgical History: No Surgical Hx Reported Additional Past Surgical History / Comment(s): myrinotomy at age 12 Past Anesthesia/Blood Transfusion Reactions: No Reported Reaction Past Psychological History: Anxiety, Depression Smoking Status: Never smoker Past Alcohol Use History: Rare Past Drug Use History: None Reported - Past Family History Mother Family Medical History: Hypertension General Exam Limitations: no limitations Course Vital Signs 04/29/20 04/30/20 21:22 00:38 Temperature 99.5 F Pulse Rate 92 77 Respiratory 20 18 Rate Blood Pressure 156/99 135/92 O2 Sat by Pulse 97 98 Oximetry Medical Decision Making - Medical Decision Making Upon arrival the patient was placed into room 4. A thorough history and physical exam is performed. Peripheral IV was established. Patient given 15 mg of Toradol. Laboratory studies are conducted in the patient has an ultrasound performed. Lab studies are essentially unremarkable. Urinalysis is negative for infection and . Ultrasound demonstrates no signs of acute cholecystitis however the patient does have cholelithiasis. I did discuss the diagnosis, differential and treatment options. This and the patient will be discharged home and given a starter pack for Tylenol threes. She is instructed to eat low cholesterol, low fat diet. Take the pain occasionally as directed. Follow up with the surgeon for further treatment options. Patient agreed to this. She has any new or worsening symptoms return to the emergency room. Patient was then discharged home in stable condition - Lab Data Result diagrams: 04/29/20 22:46 04/29/20 22:46 Lab Results 04/29/20 04/29/20 04/29/20 Range/Units 22:46 22:46 22:46 WBC 10.5 (3.8-10.6) k/uL RBC 5.35 (3.80-5.40) m/uL Hgb 14.0 (11.4-16.0) gm/dL Hct 44.1 (34.0-46.0) % MCV 82.5 (80.0-100.0) fL MCH 26.1 (25.0-35.0) pg MCHC 31.7 (31.0-37.0) g/dL RDW 13.3 (11.5-15.5) % Plt Count 278 (150-450) k/uL Neutrophils % 64 % Lymphocytes % 28 % Monocytes % 4 % Eosinophils % 2 % Basophils % 0 % Neutrophils # 6.7 (1.3-7.7) k/uL Lymphocytes # 2.9 (1.0-4.8) k/uL Monocytes # 0.4 (0-1.0) k/uL Eosinophils # 0.3 (0-0.7) k/uL Basophils # 0.0 (0-0.2) k/uL Sodium (137-145) mmol/L Potassium (3.5-5.1) mmol/L Chloride (98-107) mmol/L Carbon Dioxide (22-30) mmol/L Anion Gap mmol/L BUN (7-17) mg/dL Creatinine (0.52-1.04) mg/dL Est GFR (CKD-EPI)AfAm (>60 ml/min/1.73 sqM) Est GFR (CKD-EPI)NonAf (>60 ml/min/1.73 sqM) Glucose (74-99) mg/dL Plasma Lactic Acid Simone (0.7-2.0) mmol/L Calcium (8.4-10.2) mg/dL Total Bilirubin (0.2-1.3) mg/dL AST (14-36) U/L ALT (4-34) U/L Alkaline Phosphatase (38-126) U/L Total Protein (6.3-8.2) g/dL Albumin (3.5-5.0) g/dL Lipase (23-300) U/L Urine Color Light Yellow Urine Appearance Clear (Clear) Urine pH 6.5 (5.0-8.0) Ur Specific [place] 1.016 (1.001-1.035) Urine Protein Negative (Negative) Urine Glucose (UA) Negative (Negative) Urine Ketones Negative (Negative) Urine Blood Negative (Negative) Urine Nitrite Negative (Negative) Urine Bilirubin Negative (Negative) Urine Urobilinogen <2.0 (<2.0) mg/dL Ur Leukocyte Esterase Negative (Negative) Urine HCG, Qual Not Detected (Not Detectd) 04/29/20 04/29/20 Range/Units 22:46 22:46 WBC (3.8-10.6) k/uL RBC (3.80-5.40) m/uL Hgb (11.4-16.0) gm/dL Hct (34.0-46.0) % MCV (80.0-100.0) fL MCH (25.0-35.0) pg MCHC (31.0-37.0) g/dL RDW (11.5-15.5) % Plt Count (150-450) k/uL Neutrophils % % Lymphocytes % % Monocytes % % Eosinophils % % Basophils % % Neutrophils # (1.3-7.7) k/uL Lymphocytes # (1.0-4.8) k/uL Monocytes # (0-1.0) k/uL Eosinophils # (0-0.7) k/uL Basophils # (0-0.2) k/uL Sodium 137 (137-145) mmol/L Potassium 4.3 (3.5-5.1) mmol/L Chloride 104 (98-107) mmol/L Carbon Dioxide 22 (22-30) mmol/L Anion Gap 11 mmol/L BUN 18 H (7-17) mg/dL Creatinine 0.80 (0.52-1.04) mg/dL Est GFR (CKD-EPI)AfAm >90 (>60 ml/min/1.73 sqM) Est GFR (CKD-EPI)NonAf >90 (>60 ml/min/1.73 sqM) Glucose 105 H (74-99) mg/dL Plasma Lactic Acid Simone 1.3 (0.7-2.0) mmol/L Calcium 9.7 (8.4-10.2) mg/dL Total Bilirubin 0.3 (0.2-1.3) mg/dL AST 24 (14-36) U/L ALT 12 (4-34) U/L Alkaline Phosphatase 85 (38-126) U/L Total Protein 7.8 (6.3-8.2) g/dL Albumin 4.5 (3.5-5.0) g/dL Lipase 201 (23-300) U/L Urine Color Urine Appearance (Clear) Urine pH (5.0-8.0) Ur Specific [place] (1.001-1.035) Urine Protein (Negative) Urine Glucose (UA) (Negative) Urine Ketones (Negative) Urine Blood (Negative) Urine Nitrite (Negative) Urine Bilirubin (Negative) Urine Urobilinogen (<2.0) mg/dL Ur Leukocyte Esterase (Negative) Urine HCG, Qual (Not Detectd) - EKG Data EKG Comments: EKG demonstrates a normal sinus rhythm left ventricular rate of 82. When necessary 154. QRS 80. QTC of 422. Some baseline artifact. No acute ST segment elevations. PACs present Disposition Clinical Impression: Right upper quadrant abdominal pain, Cholelithiasis Disposition: HOME SELF-CARE Condition: Stable Instructions (If sedation given, give patient instructions): Gallstones (ED) Additional Instructions: Please follow-up with your primary care doctor within 2-4 days. Return to the emergency room for any new or worsening symptoms. Eat food when you take the pain medication. Eat a bland diet Is patient prescribed a controlled substance at d/c from ED?: No Referrals: None,Stated [Primary Care Provider] - 1-2 days Verónica Deshpande MD [STAFF PHYSICIAN] - 1-2 days Time of Disposition: 00:19
[2020-04-29 23:15] LABS: ALT 12 U/L (4-34); AST 24 U/L (14-36); African American GFR (CKD) >90 (>60 ml/min/1.73 sqM); Albumin 4.5 g/dL (3.5-5.0); Alkaline Phosphatase 85 U/L (38-126); Anion Gap 11 mmol/L; Blood Urea Nitrogen 18 mg/dL (7-17); Calcium 9.7 mg/dL (8.4-10.2); Carbon Dioxide 22 mmol/L (22-30); Chloride 104 mmol/L (98-107); Glucose 105 mg/dL (74-99); Non-African American GFR(CKD) >90 (>60 ml/min/1.73 sqM); Potassium 4.3 mmol/L (3.5-5.1); Sodium 137 mmol/L (137-145); Total Bilirubin 0.3 mg/dL (0.2-1.3); Total Protein 7.8 g/dL (6.3-8.2)
--- NOTE | 2020-04-29 23:48 | US ---
EXAMINATION TYPE: US abdomen limited DATE OF EXAM: 04/29/2020 COMPARISON: NONE CLINICAL HISTORY: ruq pain. RUQ pain x 2 months. EXAM MEASUREMENTS: Liver Length: 17.3 cm Gallbladder Wall: 0.24 cm CBD: 0.40 cm Right Kidney: 11.5 x 5.1 x 3.8 cm Patient gassy. Pancreas: Partially limited due to gas. Liver: Appears heterogeneous and measures upper limits of normal. Hypoechoic area seen adjacent to t he gallbladder: 3.6 x 2.5 x 2.5 cm. ?Focal fatty sparing. Gallbladder: Appears distended measuring 12.4 cm in length. Multiple mobile hyperechoic areas with p osterior shadowing seen within. Evidence for sonographic Zelaya's sign: No CBD: Appears wnl Right Kidney: No hydronephrosis or masses seen IMPRESSION: Liver is echogenic suggestive of fatty infiltration. There are numerous gallstones. No di lated ducts. No ascites. No gallbladder wall thickening. Pancreas appears normal.
[2020-04-30] MEDS ORDERED: ACET/COD 300 MG/30 MG STARTER PACK 6 TAB BTL PO STA (00:17)
[2020-04-30 00:39] VITALS: BP 135/92; PULSE 77; RESP 18
== END 2020-04-30 00:39 | disposition home or self-care (01) ==
LOC: EC 21:13
DX: K80.20 Calculus of gallbladder without cholecystitis without obstruction (principal)
CPT/HCPCS: 36415; 93005; 80053; 83605; 83690; 85025; 81003; 81025; 76705; 99284; 96374; 96361; J1885

== ENCOUNTER → 2023-06-29 | Outpatient (CLI) | payer BC ==
--- NOTE | 2023-06-29 11:03 | US ---
EXAMINATION TYPE: US abdomen complete DATE OF EXAM: 06/29/2023 COMPARISON: US CLINICAL INDICATION: Female, 28 years old with history of R10.84 abdominal pain and R10.12 LUQ pain; Pt states ABD pain, known gallstones TECHNIQUE: Multiple sonographic images of the abdomen are obtained. FINDINGS: EXAM MEASUREMENTS: Liver Length: 15.7 cm Gallbladder Wall: 0.4 cm CBD: 0.3 cm Spleen: 11.5 cm Right Kidney: 10.0 x 3.7 x 4.9 cm Left Kidney: 11.0 x 4.7 x 4.9 cm CHILD WATCH ATTENDANT NOTES: Pancreas: wnl, tail obscured by overlying Liver: Heterogeneous with possible fatty sparing near ashley Gallbladder: Entire lumen filled with gallstones, wall thickness upper limits of normal Evidence for sonographic Zelaya's sign: No CBD: wnl Spleen: wnl Right Kidney: wnl Left Kidney: wnl Upper IVC: wnl Abd Aorta: wnl, mid portion gassed The intrahepatic portion of the IVC and proximal abdominal aorta are within normal limits. There is no evidence of cholelithiasis. Common bile duct is unremarkable. The visualized portions of the fitzpatrick creas are homogenous. The spleen is unremarkable. Kidneys are symmetric and free of hydronephrosis. No renal lesions are seen. IMPRESSION: Fatty liver with areas of focal fatty sparing. Cholelithiasis.
== END | disposition home or self-care (01) ==
LOC: RADUSWWP 09:36
PROVIDERS: ATTEND Family Medicine
DX: K80.20 Calculus of gallbladder without cholecystitis without obstruction (principal); K76.0 Fatty (change of) liver, not elsewhere classified
CPT/HCPCS: 76700